=== PATIENT | female | born 1995 | race Two or more races ===

== ENCOUNTER 2024-01-26 21:41 | Emergency (ER) | payer OTHER ==
[~2024-01-26] VITALS: Ht 160 cm; Wt 46.3 kg
== END 2024-01-27 05:36 | disposition home or self-care (01) ==
LOC: ER 21:42
DX: S90.122A Contusion of left lesser toe(s) without damage to nail, initial encounter (principal); X58.XXXA Exposure to other specified factors, initial encounter; Y92.832 Beach as the place of occurrence of the external cause; Y93.89 Activity, other specified; Y92.89 Other specified places as the place of occurrence of the external cause; Y99.8 Other external cause status